=== PATIENT | female | born 1970 | race American Indian/Alaskan Native ===

== ENCOUNTER 2017-02-20 08:06 | Outpatient (CLI) | payer OTHER ==
--- NOTE | 2017-02-20 11:08 | Ultrasound Report ---
THYROID ULTRASOUND:02/20/17 08:06:00 CLINICAL: Nontoxic goiter. FINDINGS: High-resolution ultrasound demonstrated an enlarged multinodular thyroid. The right lobe measures 5.1 x 2.0 x 2.3cm. The left lobe measures 5.3 x 2.3 x 2.0. The isthmus measures 1.6 cm AP thickness. Multiple bilateral cysts and complex nodules. The complex nodules have a morphology typical of benign hyperplastic nodules. A complex nodule of the isthmus measures 2.5 x 1.2 x 1.9 cm. Complex nodules of the right lower pole measure 2.2 x 1.5 x 1.9 cm, 1.2 x 0.8 x 0.9 cm and 0.6 x 0.4 x 0.6 cm. A complex nodule of the left lower pole enters 2.1 x 2.0 x 1.7 cm. Complex nodules of the upper and midportion of the left thyroid lobe measure 0.7 x 0.3 x 0.6 cm and 0.8 x 0.6 x 1.0 cm. IMPRESSION: Enlarged multinodular thyroid with numerous bilateral cysts and bilateral complex nodules consistent with benign hyperplastic nodules. None have suspicious features. However, recommend a repeat thyroid ultrasound in six months to reevaluate bilateral nodules.
== END 2017-02-20 08:07 | disposition home or self-care (01) ==
LOC: SPVWC 08:06
PROVIDERS: ATTEND Family Medicine
DX: E04.2 Nontoxic multinodular goiter (principal)
CPT/HCPCS: 76536

== ENCOUNTER 2018-08-11 08:44 | Outpatient (CLI) | payer OTHER ==
--- NOTE | 2018-08-11 13:47 | Mammography Report ---
BILATERAL DIGITAL SCREENING MAMMOGRAM with CAD: 08/11/18 08:44:00 CLINICAL: Routine screening. COMPARISON:06/08/16 FINDINGS: The breasts are mostly fatty with a few bilateral scattered fibroglandular densities. Bilateral benign calcifications. No mass, architectural distortion or suspicious calcifications. IMPRESSION: No mammographic evidence of malignancy. BI-RADS CATEGORY: 2 -- Benign RECOMMENDATION: Routine mammographic screening in one year. COMMENT: Patient follow-up letters are generated by our [employer] application.
== END 2018-08-11 08:45 | disposition home or self-care (01) ==
LOC: SPVWC 08:44
PROVIDERS: ATTEND Family Medicine
DX: Z12.31 Encounter for screening mammogram for malignant neoplasm of breast (principal); E04.9 Nontoxic goiter, unspecified
CPT/HCPCS: 77067